=== PATIENT | male | born 1960 | race Caucasian/White ===

== ENCOUNTER 2018-12-25 20:46 | Emergency (ER) ==
[2018-12-25 20:52] VITALS: BP 135/81; TEMP 96.2; BMI 27.1
[2018-12-25] MEDS: MORPHINE 4 MG/ML SYRINGE IVP STA (21:14)
[2018-12-25] MEDS: LACTATED RINGERS 1,000 ML IV STA (21:17)
[2018-12-25] MEDS: ZOFRAN 4 MG/2 ML IVP STA (21:18)
[2018-12-25] MEDS: PROTONIX IV IVP STA (21:19)
--- NOTE | 2018-12-25 21:24 | CT ---
EXAM: CT scan of the abdomen and pelvis without contrast HISTORY: Abdominal distension, tightness, abdominal pain TECHNIQUE: Imaging of the abdomen pelvis was performed without contrast. 3 mm thin axial images and coronal and sagittal reconstructions were provided for interpretation. FINDINGS: The evaluation was limited without intravenous contrast. Hypodense changes are seen throughout the right lobe of the liver. The findings do have a possible m ass-like appearance and measure up to 12.3 cm AP, 8.6 cm transverse. The pancreas, adrenal glands an d kidneys appear normal. The proximal ureters are normal size. There is no intrahepatic biliary dil atation. There is a small amount of free fluid seen adjacent to the liver and spleen. The spleen is prominent and measures up to 16.8 cm in height. There is no free air. The small and large bowel lo ops are normal caliber. The helical images obtained through the pelvis demonstrate a normal appearance of the rectum, urinary bladder. There is free fluid seen within the pelvis. The appendix was not well seen. Lung bases a re clear. There is a small oval lucent lesion seen along the inferior endplate of L5 measuring 9-10 mm maximum. No other abnormalities are seen within the osseous structures. There is a small left pl eural effusion. IMPRESSION: Limited evaluation without intravenous contrast. There is a small amount of ascites. There is suspicion for a possible large low density mass lesion seen within the right lobe of the jeff er. Ultrasound of the liver or MRI of the abdomen can be obtained for confirmation. Splenomegaly. There is no bowel obstruction. Small left pleural effusion. Small lucent lesion seen along the inferior endplate of L5. The etiology is unclear. MRI of the lum bar spine can be obtained for further evaluation if clinic indicated. Metastatic disease cannot be e xcluded.
--- NOTE | 2018-12-25 21:50 | ED.PDOC ---
General ED Provider: Dr. YARELY NIXON Chief Complaint: Abdominal Pain Stated Complaint: Patient is a 58 year old who come to the ER with C/O tightness across abdomen that Started today. He had Diarreha and took Metamucil but has had no BM for 3 days. Also has Nausea but no vomiting. Admits to taking 1000mg of Aleve daily for his back pain. Time Seen by Physician: 21:00 Information Source: Patient Nursing and Triage Documentation Reviewed and Agree: Yes Does patient meet sepsis criteria?: No System Inflammatory Response Syndrome: Not Applicable Sepsis Protocol: For patient's 13 years and over: Temp is 96.8 and below OR 101 and greater Pulse >90 BPM Resp >20/minute Acutely Altered Mental Status Are patient's symptoms suggestive of a new infection, such as: -Pneumonia -Skin, Soft Tissue -Endocarditis -UTI -Bone, Joint Infection -Implantable Device -Acute Abdominal Infection -Wound Infection -Meningitis -Blood Stream Catheter Infection -Unknown Review of Systems - Review Of Systems Constitutional: Reports: No symptoms Eyes: Reports: No symptoms Ears, Nose, Mouth, Throat: Reports: No symptoms Respiratory: Reports: No symptoms Cardiac: Reports: No symptoms GI: Reports: Abdominal pain, Constipated, Nausea, Poor appetite : Reports: No symptoms Musculoskeletal: Reports: No symptoms Skin: Reports: No symptoms Neurological: Reports: Anxiety Endocrine: Reports: No symptoms Hematologic/Lymphatic: Reports: No symptoms All Other Systems: Reviewed and Negative Past Medical History - Past Medical History Previously Healthy: Yes Endocrine: Reports: None Cardiovascular: Reports: None Respiratory: Reports: None Hematological: Reports: None Gastrointestinal: Reports: None Genitourinary: Reports: None Neuro/Psych: Reports: None Musculoskeletal: Reports: Back Pain Cancer: Reports: None - Surgical History General Surgical History: Reports: None - Family History Family History: Reports: None - Social History Smoking Status: Never smoker Hx Substance Use: No Alcohol Screening: Occasionally Physical Exam - Physical Exam Appearance: Ill-appearing Ill-appearing: Moderate Pain Distress: Severe Interpretation - Radiology Interpretation Radiology Interpretation By: Radiologist Radiology Results: Positive (Liver mass may need MRI or US) Re-Evaluation - Re-Evaluation Time of Re-Evaluation: 22:07 Status: Improved Vital Signs Stable: Yes Pain Level: better Critical Care Note - Critical Care Note Total Time (mins): 30 Course - Course Hematology/Chemistry: 12/25/18 21:10 12/25/18 21:10 Orders, Labs, Meds: Lab Review 12/25/18 12/25/18 21:10 21:10 WBC 6.44 RBC 4.61 L Hgb 11.4 L Hct 37.0 L MCV 80.3 MCH 24.7 L MCHC 30.8 L RDW Coeff of [place] 14.1 Plt Count 184 Immature Gran % (Auto) 0.3 Neut % (Auto) 69.2 Lymph % (Auto) 16.3 [place] % (Auto) 9.8 Eos % (Auto) 3.9 Baso % (Auto) 0.5 Immature Gran # (Auto) 0.0 Neut # (Auto) 4.5 Lymph # (Auto) 1.1 [place] # (Auto) 0.6 Eos # (Auto) 0.3 Baso # (Auto) 0.0 Sodium 143.0 Potassium 4.10 Chloride 98.0 Carbon Dioxide 33.0 H Anion Gap 16.10 BUN 28.0 H Creatinine 1.30 H Estimated GFR (MDRD) 57.00 BUN/Creatinine Ratio 21.53 Glucose 88.0 Calcium 10.00 Total Bilirubin 0.50 AST 57.0 ALT 25.0 Alkaline Phosphatase 511.0 H Total Protein 8.60 H Albumin 4.10 Globulin 4.50 Albumin/Globulin Ratio 0.91 Amylase 74.7 Lipase 113.0 Orders Category Date Time Status Enema [ENEMA/RECTAL TUBE] ONCE CARE 12/25/18 21:42 Inactive ED IV/MEDIPORT/POWERPORT .ONCE EMERGENCY 12/25/18 20:49 Active Milk and Molasses Enema [ED ENEMA/RECTAL TUBE] .ONCE EMERGENCY 12/25/18 21:53 Active AMYLASE Stat LAB 12/25/18 21:10 Completed CBC W/ AUTO DIFF Stat LAB 12/25/18 21:10 Completed COMPREHENSIVE METABOLIC PANEL Stat LAB 12/25/18 21:10 Completed LIPASE Stat LAB 12/25/18 21:10 Completed 0.9 % Sodium Chloride [Saline Flush] MEDS 12/25/18 20:49 Discontinued 1 syr IVF PRN PRN Morphine Sulfate [Morphine 4 mg/ml Syringe] MEDS 12/25/18 20:49 Discontinued 4 mg IVP ONCE STA Ondansetron HCl/Pf [Zofran 4 mg/2 ml] MEDS 12/25/18 20:49 Discontinued 4 mg IVP ONCE STA Pantoprazole Sodium [Protonix IV] MEDS 12/25/18 20:49 Discontinued 40 mg IVP ONCE STA Ringers Lactated Solution [Lactated Ringers] 1,000 ml MEDS 12/25/18 20:[address] ABD/PEL WO RENAL STONE PROT Stat RADS 12/25/18 20:49 Completed Medications Discontinued Medications Generic Name Dose Route Start Last Admin Trade Name Freq PRN Reason Stop Dose Admin Lactated Ringer's 1,000 mls @ 1,000 mls/hr 12/25/18 20:49 12/25/18 21:17 Lactated Ringers IV 12/25/18 21:48 1,000 mls/hr BOLUS STA Administration Morphine Sulfate 4 mg 12/25/18 20:49 12/25/18 21:14 Morphine 4 Mg/Ml Syringe IVP 12/25/18 20:50 4 mg ONCE STA Administration Ondansetron HCl 4 mg 12/25/18 20:49 12/25/18 21:18 Zofran 4 Mg/2 Ml IVP 12/25/18 20:50 4 mg ONCE STA Administration Pantoprazole Sodium 40 mg 12/25/18 20:49 12/25/18 21:19 Protonix Iv IVP 12/25/18 20:50 40 mg ONCE STA Administration Sodium Chloride 1 syr 12/25/18 20:49 Saline Flush IVF PRN PRN To flush IV Vital Signs: Temp Pulse Resp BP Pulse Ox 12/25/18 20:48 96.2 F L 88 20 135/81 96 Departure - Departure Time of Disposition: 22:50 Disposition: HOME SELF-CARE Discharge Problem: Abdominal pain, Elevated alkaline phosphatase level Constipation Qualifiers: Constipation type: slow transit constipation Qualified Code(s): K59.01 - Slow transit constipation Instructions: Constipation (ED) Condition: Stable Pt referred to PMD for follow-up: Yes IPMP verified?: No Additional Instructions: Push fluids Use over the counter senna with fluids follow up with your pcp for MRI and US of your Abdomen. Allergies/Adverse Reactions: Allergies Sulfa (Sulfonamide Antibiotics) Adverse Reaction (Verified 12/25/18 20:52) Home Medications: Ambulatory Orders 1 [No Reported Medications] 12/25/18 Disposition Discussed With: Patient, Family
== END 2018-12-25 22:54 | disposition home or self-care (01) ==
LOC: ED 20:46
DX: K59.01 Slow transit constipation (principal); R74.8 Abnormal levels of other serum enzymes; R10.9 Unspecified abdominal pain
CPT/HCPCS: 36415; 74176; 80053; 82150; 83690; 85025; 96360; 96361; 96374; 96375; 99283